=== PATIENT | male | born 1990 | race Caucasian/White ===

== ENCOUNTER 2017-10-30 08:50 | Emergency (ER) | payer OTHER ==
[~2017-10-30] VITALS: Ht 177.8 cm; Wt 60.1 kg
[~2017-10-30 08:50] MED LIST: CLIN150C8 PO; HYDR-569 PO
[2017-10-30 08:54] VITALS: BP 122/77
== END 2017-10-30 10:18 | disposition home or self-care (01) ==
LOC: ER 08:50
DX: S01.511D Laceration without foreign body of lip, subsequent encounter (principal); S60.512D Abrasion of left hand, subsequent encounter; Z98.890 Other specified postprocedural states; Z88.0 Allergy status to penicillin; Z79.899 Other long term (current) drug therapy; Y08.89XD Assault by other specified means, subsequent encounter
CPT/HCPCS: 99281

== ENCOUNTER 2018-08-24 21:44 | Emergency (ER) | payer OTHER ==
[~2018-08-24] VITALS: Ht 180.3 cm; Wt 68.2 kg
[~2018-08-24 21:44] MED LIST changes: +HYDR-4383 PO; -HYDR-569 PO
[2018-08-24 21:53] VITALS: BP 126/83
[2018-08-24] MEDS ORDERED: HYDROcodone/acetaminophen 5mg/325mg tablet PO STA (21:57)
[2018-08-25] MEDS ORDERED: IBUP-1984 PO (00:15)
== END 2018-08-25 00:40 | disposition home or self-care (01) ==
LOC: ER 21:45
DX: S93.601A Unspecified sprain of right foot, initial encounter (principal); F17.200 Nicotine dependence, unspecified, uncomplicated; Z98.890 Other specified postprocedural states; Z88.0 Allergy status to penicillin; Z79.2 Long term (current) use of antibiotics; Z79.899 Other long term (current) drug therapy; W22.8XXA Striking against or struck by other objects, initial encounter; Y93.89 Activity, other specified; Y92.89 Other specified places as the place of occurrence of the external cause; Y99.8 Other external cause status
CPT/HCPCS: 73630; 99284

== ENCOUNTER 2021-09-14 00:03 | Emergency (ER) | payer MEDICAID ==
[~2021-09-14] VITALS: Ht 180.3 cm; Wt 68.2 kg
[2021-09-14 00:09] VITALS: BP 126/86
[2021-09-14] MEDS ORDERED: ketorolac trometh. 30mg/ml inj. IM ONE (01:20)
[2021-09-14] MEDS ORDERED: orphenadrine citrate 60mg/2ml inj. IM ONE (01:20)
[2021-09-14] MEDS ORDERED: CYCL-1 PO (01:25)
== END 2021-09-14 02:36 | disposition home or self-care (01) ==
LOC: ER 00:04
DX: S39.012A Strain of muscle, fascia and tendon of lower back, initial encounter (principal); S16.1XXA Strain of muscle, fascia and tendon at neck level, initial encounter; F17.210 Nicotine dependence, cigarettes, uncomplicated; Z88.0 Allergy status to penicillin; Z79.2 Long term (current) use of antibiotics; V98.8XXA Other specified transport accidents, initial encounter; Y93.89 Activity, other specified; Y92.89 Other specified places as the place of occurrence of the external cause; Y99.8 Other external cause status
CPT/HCPCS: 72040; 72100; 96372; 99284; J1885; J2360

== ENCOUNTER 2024-01-12 16:43 | Emergency (ER) | payer MEDICAID, OTHER ==
[~2024-01-12] VITALS: Ht 175.3 cm; Wt 72.7 kg
[~2024-01-12 16:43] MED LIST changes: +CLIN-214 PO; -CLIN150C8 PO; +CYCL-1 PO
[2024-01-12 16:51] VITALS: BP 132/84; PULSE 122; RESP 18; TEMP 97.7; O2SAT 100
[2024-01-12] MEDS ORDERED: CefTRIAXone 1000mg IM Kit (w/lidocaine diluent) IM ONE (16:55)
== END 2024-01-12 17:09 | disposition left against medical advice (07) ==
LOC: ER 16:43
DX: K04.7 Periapical abscess without sinus (principal); F17.210 Nicotine dependence, cigarettes, uncomplicated; Z88.0 Allergy status to penicillin; Z79.2 Long term (current) use of antibiotics; Z90.89 Acquired absence of other organs
CPT/HCPCS: 99281